=== PATIENT | male | born 1980 | race Caucasian/White ===

== ENCOUNTER 2019-10-28 11:04 | Emergency (ER) | payer OTHER, SELFPAY ==
[2019-10-28 11:04] VITALS: BP 121/84; PULSE 82; RESP 14; TEMP 36.9; O2SAT 98
--- NOTE | 2019-10-28 12:07 | ED.BACK ---
HPI - Back Pain/Injury General Chief Complaint: Back Pain/Injury Stated Complaint: injured lower back Source: patient Limitations: no limitations History of Present Illness HPI Narrative: At 9:00 p.m. yesterday this 39-year-old male was working at [employer] pulling on a bag of cat litter which was caught up in some string. He heard and felt a pop in his lower backthen experienced immediate pain in the lower back and as well as his right buttocks and his right great toe. This was associated with weakness in his right leg in a vague sense of numbness. He denies bowel/bladder dysfunction. He denies fevers/ chills/illicit drug use/ cancer. The pain is sharp, currently rated 6/, made worse with forward flexion and getting in and out of his truck. Standing upright decreases the pain. He had low back pain in the L4-L5 region in 2006 (per patient) treated with an epidural injection. Since then every 1 or 2 months he may have some minor discomfort in his lower back which lasts less than a day it is not impair his activities. Related Data Home Medications Medication Instructions Recorded Confirmed hydrocodone-acetaminophen [[place]] 1 tablet PO Q6H PRN 10/28/19 10/28/19 tramadol 50 mg PO Q6H PRN 10/28/19 10/28/19 Allergies Allergy/AdvReac Type Severity Reaction Status Date / Time Penicillins Allergy Swelling Verified 10/28/19 11:28 of Lip/Tongue/Throat Review of Systems Constitutional: Constitutional: Denies chills and Denies fever(s) Cardiovascular: Cardiovascular: Denies chest pain Respiratory: Respiratory: Denies cough Gastrointestinal: Gastrointestinal: Denies diarrhea, Denies nausea and Denies vomiting Genitourinary: Genitourinary: Denies urinary incontinence Musculoskeletal: Musculoskeletal: Reports no additional musculoskeletal complaints Integumentary/Breasts: Skin/Breast: Denies rash Neurologic: Reports system reviewed and no additional complaints, except as documented PMFSH Past Medical History Medical History (Updated 10/28/19 @ 12:43 by Wilder Samaniego MD) Knee pain, right Social History Social History (Updated 10/28/19 @ 13:06 by Wilder Samaniego MD) Years smoked: 25 Alcohol intake: never Exam Narrative: Exam Narrative: Standing up right hip and knee flexed about 30? for comfort. Const: General: alert Orientation/consciousness: patient oriented x3 Back/Spine/Pelvis: Thoracic/Lumbar Spine: No Thoracic/lumbar spine scar(s), No thoraco-lumbar ROM normal (minimal flexion/ Extension secondary to pain), straight leg raise negative bilaterally ( negative for radicular pain /numbness in the right leg.), bend over test abnormal, thoraco-lumbar ROM limited, thoraco-lumbar spasm ( Right lower 1/2 lumbar paraspinal muscles), lumbar spinal tenderness at L3, at L4 and at L5 and No straight leg raise positive Neuro: Gait exam (Neuro): Normal gait present Other: 2+ patellar and ankle jerk reflexes bilaterally. Weakness of the right great toe and foot with dorsiflexion as well as weakness with resisted foot inversion and eversion. Weakness with knee extension. Pinprick sensation decreased in the right foot right calf region on left Course Course Emergency Course: I discussed the presumptive diagnosis with the patient. recommended that he not work he has further evaluation. He was encouraged to apply ice, use lidocaine [id number] patch take naproxen OTC 4 times a day and cyclobenzaprine 5 mg 3 times a day. He continues to have pain that he tramadol at home he can take as directed on the bottle. a form from [employer]. I recommended they he not return to work for week Vital Signs Vital signs: Vital Signs Temperature 36.9 C 10/28/19 11:04 Pulse Rate 82 10/28/19 11:04 Respiratory Rate 14 10/28/19 11:04 Blood Pressure 121/84 10/28/19 11:04 Pulse Oximetry 98 10/28/19 11:04 Temperature 36.9 C 10/28/19 11:04 Pulse Rate 82 10/28/19 11:04 Respiratory Rate 15
[2019-10-28 12:54] VITALS: RESP 15
== END 2019-10-28 12:56 | disposition home or self-care (01) ==
PROVIDERS: Emergency Provider Family Medicine; PCP Family Medicine
DX: M54.31 Sciatica, right side (principal)
CPT/HCPCS: 99283